=== PATIENT | male | born 1985 | race Caucasian/White ===

== ENCOUNTER 2022-12-30 19:10 | Emergency (ER) | payer SELFPAY ==
[~2022-12-30] VITALS: Ht 188 cm; Wt 72.1 kg
--- NOTE | 2022-12-30 19:31 | NUR ---
ARRIVAL PT AMBULATORY INTO ER WITH NO DISTRESS ON RA, C/O RASH, ITCHINESS, AND THROAT TIGHTNESS. HISTORY AND STATUS OBTAINED. VS AND ASSESSMENT COMPLETE CHARTED.
--- NOTE | 2022-12-30 19:38 | ER.PDOC ---
General Chief Complaint: Requesting Medical Care Stated Complaint: SOB,ST Time seen by MD: 19:37 Source: patient Exam Limitations: no limitations History of Present Illness Initial Comments 37 yo w throat swelling and bilat upper ext and ant chest wall itching rash x1d. Throat swelling makes him feel like he has SOB. Was working in his yard all day today. Denies new chemical or plant exposure Severity: moderate Activities at Onset: rest Prior Episodes/Possible Cause: no prior episodes Past Medical History Medical History: no pertinent history Review of Systems Constitutional: denies no symptoms reported, denies see HPI, denies chills, denies diaphoresis, denies fever, denies malaise, denies weakness, denies other EENTM: denies no symptoms reported, denies see HPI, denies eye pain, denies blurred vision, denies tearing, denies double vision, denies ear pain, denies ear discharge, denies nose pain, denies nose congestion, denies throat pain; throat swelling; denies mouth pain, denies mouth swelling, denies other Respiratory: denies no symptoms reported, denies see HPI, denies cough, denies orthopnea; shortness of breath; denies stridor, denies wheezing, denies other Cardiovascular: denies no symptoms reported, denies see HPI, denies chest pain, denies edema, denies palpitations, denies syncope, denies other All Other Systems: Reviewed and Negative Physical Exam General Appearance: No Apparent Distress, WD/WN HEENT: PERRL/EOMI, Normal ENT Inspection, Pharynx Normal, Other (mild tonsilar erythema and edema) Neck: Non-Tender, Full Range of Motion, Supple, Normal Inspection Respiratory: chest non-tender, lungs clear, normal breath sounds, no respiratory distress, no accessory muscle use Cardiovascular: Normal Peripheral Pulses, Regular Rate, Rhythm, No Edema, No Gallop, No JVD, No Murmur Gastrointestinal: Normal Bowel Sounds, No Organomegaly, No Pulsatile Mass, Non Tender, Soft Extremities: Normal Range of Motion, Non-Tender, Normal Inspection, No Pedal Edema, No Calf Tenderness, Normal Capillary Refill Neurologic/Psychiatric: [employer]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, No Motor/Sensory Deficits, Alert, Normal Mood/Affect, Oriented x 3 Skin: Warm/Dry, Other (diffuse maculopapular erythematous rash to bilat ue and upper anterior chest wall) Lymphatic: No Adenopathy Results/Orders Results/Orders Orders - DONN MONTES MD Methylprednisolone Sod Succ (Solu-Medrol (12/30/22 19:46) Diphenhydramine Hcl (Benadryl) (12/30/22 19:46) ER DEPART Departure Time of Disposition: 19:57 Disposition: 01 HOME / SELF CARE / HOMELESS Impression: Primary Impression: Contact allergic reaction Additional Impression: Globus pharyngeus Condition: Stable Patient Instructions: Contact Dermatitis, Viral and Bacterial Pharyngitis, [id number] Referrals: MANGO BURRELL PA-C (PCP) PRIMARY CARE PROVIDER Additional Instructions: benadryl prednisone f/u w pcp in 3d rter prn Duration or Time Spent with Pa: 20 Problem Qualifiers DONN MONTES MD December 30, 2022 19:38
[2022-12-30 19:46] VITALS: BP 143/87
[2022-12-30] MEDS ORDERED: SOLU-MEDROL IM STA (19:46)
[2022-12-30] MEDS ORDERED: BENADRYL PO STA (19:46)
[2022-12-30 20:21] VITALS: BP 167/97
== END 2022-12-30 20:29 | disposition home or self-care (01) ==
LOC: ER 19:10
DX: T78.40XA Allergy, unspecified, initial encounter (principal); F45.8 Other somatoform disorders; X58.XXXA Exposure to other specified factors, initial encounter
CPT/HCPCS: 96372; 99283